=== PATIENT | male | born 1995 | race Asian ===

== ENCOUNTER 2018-02-21 05:36 | Emergency (ER) | payer OTHER ==
[~2018-02-21] VITALS: Ht 172.7 cm; Wt 61.9 kg
[2018-02-21] MEDS ORDERED: IOPAMIDOL 300MG/ML 100 ML INFUS..BTL IV ONE (06:00)
[2018-02-21] MEDS ORDERED: MORPHINE SULFATE 2 MG/ML SYR IV STA ×2 (06:09→08:00)
[2018-02-21] MEDS ORDERED: SODIUM CHLORIDE 0.9% 1000ML 1,000 ML IV SCH (06:15)
== END 2018-02-21 08:51 | disposition home or self-care (01) ==
LOC: FSED 05:36
DX: R30.0 Dysuria (principal); R10.31 Right lower quadrant pain; R10.32 Left lower quadrant pain; N43.3 Hydrocele, unspecified
CPT/HCPCS: 74177; 76870; 80053; 81003; 85025; 99284; J2270; J7030; Q9967